=== PATIENT | female | born 1960 | race Caucasian/White ===

== ENCOUNTER → 2016-05-20 | Outpatient (CLI) | payer OTHER ==
[~2016-05-20] MED LIST: CIPR-9 PO; LEVO25TA4 PO; MACR100C2 PO; PAXI30TA7 PO; PAXI40TA PO; PHEN0.4T PO
[2016-05-20 16:50] LABS: ALKALINE PHOSPHATASE 115 U/L (45-117); ALT (GPT) 47 U/L (10-53); AST (GOT) 57 U/L (15-37); INDIRECT BILIRUBIN 0.4 MG/DL (0.0-0.8); TOTAL BILIRUBIN ADULT 0.6 MG/DL (0.2-1.0)
[2016-05-20 18:18] LABS: HEMOGLOBIN A1a 0.9 %; HEMOGLOBIN A1b 0.8 %; HEMOGLOBIN Ao 83.2 %; HEMOGLOBIN F 1.5 %; HEMOGLOBIN LA1C 2.3 %; HEMOGLOBIN P3 3.6 %
== END ==
LOC: CLAB 15:07
PROVIDERS: ATTEND Family Medicine
DX: R73.01 Impaired fasting glucose (principal); E03.9 Hypothyroidism, unspecified; R74.8 Abnormal levels of other serum enzymes
CPT/HCPCS: 36415; 80076; 83036; 84443

== ENCOUNTER 2016-09-30 12:03 | Emergency (ER) | payer OTHER ==
[~2016-09-30] VITALS: Ht 172.7 cm; Wt 97.7 kg
[~2016-09-30 12:03] MED LIST changes: -CIPR-9 PO; -MACR100C2 PO; -PAXI30TA7 PO; -PHEN0.4T PO
[2016-09-30 12:07] VITALS: BP 134/80; PULSE 113; RESP 18; TEMP 98.5; O2SAT 98
[2016-09-30] MEDS ORDERED: PAXI30TA7 PO (14:02)
[2016-09-30 14:59] LABS: BACTERIA, URINE MANY /hpf; BLOOD, URINE SMALL (NEG); COMMENT (UR) CULTURE INDICATED; CULTURE IF INDICATED CULTURE INDICATED; GLUCOSE,URINE 1000 mg/dL (NEG); KETONE, URINE NEG (NEG); MUCUS URINE FEW /lpf (OCC); NITRITE,URINE POS (NEG); SQUAMOUS EPITHELIAL CELL URINE 2 /hpf (0-5); URINE COLOR YELLOW (YELLW/STRAW)
[2016-09-30] MEDS ORDERED: PHEN0.4T PO (15:16)
[2016-09-30] MEDS ORDERED: MACR100C2 PO (15:16)
--- NOTE | 2016-09-30 15:17 | PD ---
HPI . Suprapubic pain Chief Complaint: Abdominal Pain Time Seen by Provider: 13:54 Travel History International Travel<30 days: No Contact w/Intl Traveler<30days: No Traveled to known affect area: No History of Present Illness HPI This patient presents with a 2 week history of suprapubic pain. It radiates to her back. It is associated with urinary frequency. His fever. She denies vomiting. The suprapubic pain is described as a burning sensation and is rated 10/10. PFSH Past Medical History Anemia: Yes Arthritis: Yes Blood Disorders: No Bipolar Disorder: Yes Cancer: No Cardiovascular Problems: Yes (HTN) High Cholesterol: Yes Diminished Hearing: No Endocrine: Yes Gastrointestinal Disorders: No Genitourinary: No Hypertension: Yes Immune Disorder: No Musculoskeletal: Yes (muscle cramps) Neurologic: Yes (headaches) Reproductive: No Respiratory: No Thyroid Disease: Yes Tetanus Vaccination: > 5 Years Influenza Vaccination: No ?: Not Menopausal: Yes : 6 Para: 2 Miscarriage: 4 : 0 Tubal Ligation: Yes Past Surgical History Gynecologic Surgery: Yes (TUBAL LIGATION) Hysterectomy: Yes Other Surgery: Yes (see hx) Social History Alcohol Use: Yes (on occasion) Tobacco Use: No Substance Use: No Allergies-Medications (Allergen,Severity, Reaction): Coded Allergies: No Known Allergies (Verified , 09/30/16) Reported Meds & Prescriptions Reported Meds & Active Scripts Active Levothyroxine (Levothyroxine Sodium) 25 Mcg Tab 25 Mcg PO DAILY Reported Paxil (Paroxetine HCl) 30 Mg Tab 40 Mg PO DAILY Review of Systems Except as stated in HPI: all other systems reviewed are Neg General / Constitutional: No: Fever, Chills Gastrointestinal: Positive: Abdominal Pain, No: Nausea, Vomiting, Diarrhea Genitourinary: Positive: Frequency, No: Dysuria Physical Exam Narrative GENERAL: Patient is resting comfortably on the stretcher. SKIN: Warm and dry. HEAD: Atraumatic. Normocephalic. EYES: Pupils equal and round. Extraocular movements are intact. ENT: No nasal bleeding or discharge. Mucous membranes pink and moist. NECK: Trachea midline. Neck is supple. CARDIOVASCULAR: Regular rate and rhythm. RESPIRATORY: No accessory muscle use. GASTROINTESTINAL: Abdomen soft, non-tender, nondistended. No CVA tenderness. MUSCULOSKELETAL: No obvious deformities. No edema. NEUROLOGICAL: Awake and alert. No obvious cranial nerve deficits. Motor grossly within normal limits. Normal speech. PSYCHIATRIC: Appropriate mood and affect; insight and judgment normal. Data Data Last Documented VS Vital Signs Date Time Temp Pulse Resp B/P Pulse Ox O2 Delivery O2 Flow Rate FiO2 09/30/16 12:07 98.5 113 18 134/80 98 Room Air Orders Urinalysis - C+S If Indicated (09/30/16 13:55) Urine Culture (09/30/16 14:30) Labs Laboratory Tests Test 09/30/16 14:30 Urine Color YELLOW Urine Turbidity HAZY Urine pH 6.0 Urine Specific [place] 1.022 Urine Protein 30 mg/dL Urine Glucose (UA) 1000 mg/dL Urine Ketones NEG mg/dL Urine Occult Blood SMALL Urine Nitrite POS Urine Bilirubin NEG Urine Urobilinogen 8.0 MG/DL Urine Leukocyte Esterase LARGE Urine RBC 17 /hpf Urine WBC /hpf Urine Squamous Epithelial 2 /hpf Cells Urine Bacteria MANY /hpf Urine Mucus FEW /lpf Microscopic Urinalysis Comment CULTURE INDICATED MDM Medical Decision Making Medical Screen Exam Complete: Yes Emergency Medical Condition: Yes Differential Diagnosis Final differential diagnosis of urinary symptoms includes but is not limited to UTI, kidney stone, pyelonephritis, bacterial vaginosis, yeast infection, urinary retention Narrative Course Patient presents with suprapubic pain with urination. Physical exam is benign. Laboratory Tests Test 09/30/16 14:30 Urine Color YELLOW Urine Turbidity HAZY Urine pH 6.0 Urine Specific [place] 1.022 Urine Protein 30 mg/dL Urine Glucose (UA) 1000 mg/dL Urine Ketones NEG mg/dL Urine Occult Blood SMALL Urine Nitrite POS Urine Bilirubin NEG Urine Urobilinogen 8.0 MG/DL Urine Leukocyte Esterase LARGE Urine RBC 17 /hpf Urine WBC /hpf Urine Squamous Epithelial 2 /hpf Cells Urine Bacteria MANY /hpf Urine Mucus FEW /lpf Microscopic Urinalysis Comment CULTURE INDICATED UA is compatible with UTI. The patient will be treated with it and Pyridium. She is to follow-up with her primary care provider if her symptoms persist. Diagnosis Primary Impression: Urinary tract infection Qualified Code: N30.00 - Acute cystitis without hematuria Patient Instructions: General Instructions, Urinary Tract Infection in Women ( [place]) Med/Other Pt SpecificInfo: Prescription(s) given Scripts Phenazopyridine (Pyridium)100 Mg [id number] Mg PO Q8H PRN (DYSURIA) #10 TAB Ref 0 Prov:Starr Barrera MD 09/30/16 Nitrofurantoin Monohydrate Macrocrystals (Macrobid)100 Mg [id number] Mg PO BID 7 Days Ref 0 Prov:Starr Barrera MD 09/30/16 Disposition: 01 DISCHARGE HOME Condition: Stable Starr Barrera MD Sep 30, 2016 15:17
[2016-09-30 15:40] VITALS: BP 142/83
== END 2016-09-30 15:43 | disposition home or self-care (01) ==
LOC: NEPD 12:03
DX: N39.0 Urinary tract infection, site not specified (principal); B96.20 Unspecified Escherichia coli [E. coli] as the cause of diseases classified elsewhere; D64.9 Anemia, unspecified; I10 Essential (primary) hypertension; E78.00 Pure hypercholesterolemia, unspecified; E07.9 Disorder of thyroid, unspecified
CPT/HCPCS: 81001; 87077; 87086; 87186; 99284